=== PATIENT | female | born 1975 | race Caucasian/White ===

== ENCOUNTER 2020-01-28 09:07 | Outpatient (CLI) | payer OTHER | END 2020-01-28 09:23 | disposition home or self-care (01) | LOC: SONOGRAMA 09:07 | PROVIDERS: ATTEND Obstetrics & Gynecology Reproductive Endocrinology | DX: D25.2 Subserosal leiomyoma of uterus (principal); N92.5 Other specified irregular menstruation; R10.2 Pelvic and perineal pain; D39.10 Neoplasm of uncertain behavior of unspecified ovary; N80.2 Endometriosis of fallopian tube; N93.8 Other specified abnormal uterine and vaginal bleeding | CPT/HCPCS: 72196; 74182 ==